=== PATIENT | male | born 1975 | race Caucasian/White ===

== ENCOUNTER → 2016-07-06 | Outpatient (CLI) | payer OTHER ==
[~2016-07-06] MED LIST: CIPRO500 MG PO; DAYPRO600 M1 PO; FLAGYL500 MG PO; HYDROCODONE BIT1 T11 PO; MEDROL DOSEPAK4 MG PO; NAPROSYN500 MG PO; TOPAMAX200 MG PO; VICODIN 5/500 505 MG PO; VICODIN 500 MG-1 TAB PO; VISTARIL25 M1 PO
[2016-07-06 14:55] LABS: BASO # 0.1 10*3/uL (0.0-0.1); BASO % 1.2 % (0.0-1.0); EOS # 0.3 10*3/uL (0.0-0.4); EOS % 3.4 % (1.0-4.0); HEMOGLOBIN 17.2 g/dl (14.0-18.0); IG # 0.1 10*3/uL (0.0-0.1); LYMPH # 2.4 10*3/uL (1.3-4.4); LYMPH % 29.4 % (27.0-41.0); MEAN CELL VOLUME 101.7 fl (80.0-94.0); MEAN CORPUSCULAR HGB 36.4 pg (27.0-31.0); MEAN CORPUSCULAR HGB CONC 35.8 g/dl (33.0-37.0); MEAN PLATELET VOLUME 8.9 fl (9.6-12.3); MONO # 0.7 10*3/uL (0.1-1.0); MONO % 8.3 % (3.0-9.0); NEUT # 4.7 10*3/uL (2.3-7.9); NEUT % 56.7 % (47.0-73.0); PLATELET COUNT AUTOMATED 337 10*3/uL (130-400); RED BLOOD COUNT 4.72 10*6/uL (4.50-5.90); RED CELL DISTRI WIDTH 12.5 % (0-14.5); WHITE BLOOD COUNT 8.2 10*3/uL (4.8-10.8)
[2016-07-06 15:11] LABS: ALBUMIN 3.7 gm/dl (3.1-4.5); ALKALINE PHOSPHATASE 62 U/L (45-117); BILIRUBIN, TOTAL 0.4 mg/dl (0.2-1.0); BUN 14 mg/dl (7-24); CARBON DIOXIDE 21 mmol/L (21-32); CHLORIDE 111 mmol/L (98-107); EST GLOM FILT AFRICAN AMERICAN > 60 ml/min; GLUCOSE 91 mg/dL (65-99); POTASSIUM 3.5 mmol/L (3.5-5.1); SGOT/AST 29 IU/L (3-35); SGPT/ALT 56 U/L (12-78); SODIUM 139 mmol/L (136-145); TOTAL PROTEIN 7.3 gm/dL (6.4-8.2)
[2016-07-06 15:19] LABS: FREE T4 0.95 ng/dl (0.76-1.46)
[2016-07-06 16:16] LABS: VITAMIN D, 25-HYDROXY 8.7 ng/mL (30-100)
[2016-07-07 15:08] LABS: LYME AB/TOTAL IMMUNOGLOBULINS <0.91 ISR (0.00-0.90)
[2016-07-07 16:12] LABS: t-TRANSGLUTAMINASE (tTG) IgG <2 U/mL (0-5)
== END | disposition home or self-care (01) ==
LOC: LAB 14:21
PROVIDERS: Physician Assistant Medical
DX: Z13.21 Encounter for screening for nutritional disorder (principal); R51 Headache; R11.2 Nausea with vomiting, unspecified; T78.1XXS Other adverse food reactions, not elsewhere classified, sequela; Z72.4 Inappropriate diet and eating habits; X58.XXXS Exposure to other specified factors, sequela

== ENCOUNTER → 2016-10-11 | Outpatient (CLI) | payer OTHER ==
[2016-10-11 14:30] LABS: VITAMIN D, 25-HYDROXY 38.6 ng/mL (30-100)
== END | disposition home or self-care (01) ==
LOC: LAB 11:59
PROVIDERS: Psychiatry & Neurology Neurology
DX: E53.8 Deficiency of other specified B group vitamins (principal); E55.9 Vitamin D deficiency, unspecified

== ENCOUNTER → 2019-01-04 | Outpatient (CLI) | payer OTHER ==
--- NOTE | ~2019-01-04 | EKG ---
[place], [place] ELECTROCARDIOGRAM REPORT NAME: FREDERICK LEMUS UNIT #: [id number] ROOM: DOCTOR: LEONARD DRAFT REPORT BIRTHDATE: [birth year] [facility] Test Date: 2019-01-04 Test Time: 10:25:08 Pat Name: FREDERICK LEMUS Department: Room: Gender: Sales Account Coordinator: : 1975 Requested By: TEVIN GARCIA Order Number: [id number] Reading MD: Maricruz Haas MD Measurements Intervals [place] Rate: 58 P: 27 OK: 181 QRS: -33 QRSD: 105 T: 30 QT: 430 QTc: 423 Interpretive Statements Sinus rhythm Left axis deviation Baseline wander in lead(s) V1,V3 No previous ECG available for comparison Electronically Signed On 01-06-2019 8:47:58 PST by Maricruz Haas MD CM:EKGRPT:ELECTROCARDIOGRAM REPORT [id number] TEVIN REYES DRAFT REPORT TEVIN GARCIA DO
[2019-01-04 10:30] LABS: BASO # 0.1 10*3/uL (0.0-0.1); BASO % 1.2 % (0.0-1.0); EOS # 0.2 10*3/uL (0.0-0.4); EOS % 2.4 % (1.0-4.0); HEMATOCRIT 52.7 % (42.0-52.0); LYMPH # 2.4 10*3/uL (1.3-4.4); LYMPH % 27.6 % (27.0-41.0); MEAN CELL VOLUME 95.6 fl (80.0-94.0); MEAN CORPUSCULAR HGB 32.7 pg (27.0-31.0); MEAN CORPUSCULAR HGB CONC 34.2 g/dl (33.0-37.0); MEAN PLATELET VOLUME 9.6 fl (9.6-12.3); MONO # 0.9 10*3/uL (0.1-1.0); MONO % 10.5 % (3.0-9.0); NEUT # 5.1 10*3/uL (2.3-7.9); NEUT % 57.6 % (47.0-73.0); PLATELET COUNT AUTOMATED 351 10*3/uL (130-400); RED BLOOD COUNT 5.51 10*6/uL (4.50-5.90); RED CELL DISTRI WIDTH 12.7 % (0-14.5); WHITE BLOOD COUNT 8.8 10*3/uL (4.8-10.8)
[2019-01-04 11:01] LABS: ALBUMIN 3.6 gm/dl (3.1-4.5); ALKALINE PHOSPHATASE 68 U/L (45-117); BUN 14 mg/dl (7-24); CHLORIDE 113 mmol/L (98-107); CHOLESTEROL 192 mg/dL (<200); CREATININE 1.39 mg/dL (0.70-1.30); FREE T4 1.26 ng/dl (0.76-1.46); HDL CHOLESTEROL 33 mg/dl (40-60); LDL CHOLESTEROL 129 mg/dL (9-159); POTASSIUM 3.4 mmol/L (3.5-5.1); SGOT/AST 16 IU/L (3-35); SGPT/ALT 27 U/L (12-78); SODIUM 140 mmol/L (136-145); TOTAL PROTEIN 7.4 gm/dL (6.4-8.2); TRIGLYCERIDES 149 mg/dl (<150); VLDL CHOLESTEROL 30 mg/dL (6-40)
[2019-01-04 11:58] LABS: VITAMIN D, 25-HYDROXY 56.3 ng/mL (30-100)
[2019-01-05 07:07] LABS: TOTAL PROTEIN, SERUM 6.8 g/dL (6.0-8.5)
[2019-01-05 08:09] LABS: IMMUNOGLOBULIN G, QNT 927 mg/dL (700-1600); IMMUNOGLOBULIN M, QNT 183 mg/dL (20-172); RHEUMATOID ARTHRITIS FACTOR <10.0 IU/mL (0.0-13.9)
[2019-01-06 17:06] LABS: CCP ANTIBODIES IGG/IGA 8 units (0-19)
[2019-01-07 15:09] LABS: ALBUMIN 3.4 g/dL (2.9-4.4); ALPHA-1-GLOBULIN 0.3 g/dL (0.0-0.4); ALPHA-2-GLOBULIN 0.8 g/dL (0.4-1.0); BETA GLOBULIN 1.2 g/dL (0.7-1.3); GAMMA GLOBULIN 1.1 g/dL (0.4-1.8); GLOBULIN, TOTAL 3.4 g/dL (2.2-3.9); M-SPIKE Not Observed g/dL (Not Observed)
== END | disposition home or self-care (01) ==
LOC: LAB 00:38 → ORTHO 00:38
PROVIDERS: Psychiatry & Neurology Neurology
DX: Z51.81 Encounter for therapeutic drug level monitoring (principal); M25.50 Pain in unspecified joint; E78.5 Hyperlipidemia, unspecified; R20.0 Anesthesia of skin; R20.2 Paresthesia of skin; R20.8 Other disturbances of skin sensation; R55 Syncope and collapse

== ENCOUNTER → 2019-01-07 | Outpatient (CLI) | payer OTHER ==
[2019-01-09 17:11] LABS: ARSENIC (TOTAL), URINE None Detected ug/L (0-50)
== END | disposition home or self-care (01) ==
LOC: LAB 14:03
PROVIDERS: Psychiatry & Neurology Neurology
DX: R20.2 Paresthesia of skin (principal)

== ENCOUNTER → 2019-03-08 | Outpatient (CLI) | payer OTHER ==
[2019-03-12 10:01] LABS: ARSENIC (TOTAL), URINE None Detected ug/L (0-50)
== END | disposition home or self-care (01) ==
LOC: LAB 11:30
PROVIDERS: Physician Assistant Medical
DX: R20.0 Anesthesia of skin (principal); R20.2 Paresthesia of skin